=== PATIENT | female | born 1990 | race Caucasian/White ===

== ENCOUNTER 2020-09-26 02:17 | Emergency (ER) | payer BC ==
[2020-09-26] MEDS ORDERED: Ondansetron 4 MG/2 ML SDV IVPUSH ONE (02:46)
[2020-09-26] MEDS ORDERED: HYDROmorphone 1 MG/ML Syringe IVPUSH STA (02:46)
--- NOTE | 2020-09-26 02:54 | EDM.PDOC ---
ED HPI GENERAL MEDICAL PROBLEM - General Chief Complaint: Abdominal Pain Stated Complaint: EXTREME ABDOMINAL PAIN Time Seen by Provider: 09/26/20 02:32 Source of Information: Reports: Patient History Limitations: Reports: No Limitations - History of Present Illness INITIAL COMMENTS - FREE TEXT/NARRATIVE: Mrs. Martinez is a very pleasant 30-year-old woman with no chronic medical p roblems, who now presents the ED after developing sudden onset right lower quadrant abdominal pain around midnight tonight. She states that she has pain in that area if she remains still, but that it becomes sharp if she moves. The pain does not radiate to or from either flank. She denies associated nausea, vomiting, constipation, diarrhea, urinary symptoms, or fever, however, the patient then vomited during my evaluation. No prior similar symptoms. No history of ovarian cysts. The patient states that she took Tylenol and used a heating pad around midnight, without improvement of her symptoms. Here in the ED, her initial BP was found to be modestly elevated at 145/99, otherwise, she is hemodynamically stable, afebrile, saturating 99% on room air. The patient started her menstrual period yesterday, 09/25/2020. She last ate around 17:30 last night. Prior to midnight, the patient denies having a recent fever, chills, sore throat, ear pain, nasal or sinus congestion, cough, dyspnea, chest pain, palpitations, nausea, vomiting, constipation, diarrhea, abdominal pain, urinary symptoms, recent weight gain or weight loss, recent bloody bowel movements or black bowel movements, recent joint aches, headaches, or rashes. The patient does not have a PCP. Her Jig Borer is Dr. Carmen Knight. She received an influenza vaccine this season. Right Lower Abdomen Pain Score (Numeric/FACES): 8 - Related Data Allergies Allergy/AdvReac Type Severity Reaction Status Date / Time Sulfa (Sulfonamide Allergy Severe Cannot Verified 09/26/20 02:32 Antibiotics) Remember Home Meds: Home Meds Control. 1 tab PO DAILY 09/26/20 [History] Ondansetron [Zofran ODT] 1 tab PO Q8H PRN #10 tab.dis 09/26/20 [Rx] Past Medical History : 2 Para: 2 - Past Surgical History HEENT Surgical History: Reports: Oral Surgery (dental extractions) Dermatological Surgical History: Reports: Other (See Below) (Benign cyst excision right axilla) Social & Family History - Tobacco Use Tobacco Use Status *Q: Never Tobacco User Second Hand Smoke Exposure: No - Caffeine Use Caffeine Use: Reports: None - Alcohol Use Alcohol Use History: No - Recreational Drug Use Recreational Drug Use: No - Living Situation & Occupation Living situation: Reports: , with Spouse, with Family (2 kids) Occupation: Employed (teacher) ED ROS GENERAL - Review of Systems Review Of Systems: Comprehensive ROS is negative, except as noted in HPI. ED EXAM, GI/ABD - Physical Exam Exam: See Below Exam Limited By: No Limitations General Appearance: Alert, WD/WN, Mild Distress (vomited during evaluation) Eyes: Bilateral: Normal Appearance, EOMI Ears: Normal External Exam, Hearing Grossly Normal Nose: Normal Inspection Throat/Mouth: Normal Inspection, Normal Lips, Normal Voice, No Airway Compromise Head: Atraumatic, Normocephalic Neck: Normal Inspection, Full Range of Motion Respiratory/Chest: No Respiratory Distress, Lungs Clear, Normal Breath Sounds, No Accessory Muscle Use Cardiovascular: Normal Peripheral Pulses, Regular Rate, Rhythm, No Edema, No Gallop, No JVD, No Murmur, No Rub GI/Abdominal Exam: Normal Bowel Sounds, Soft, No Organomegaly, No Distention, No Abnormal Bruit, No Mass, Tender (Mild, generalized, but likely worst in the suprapubic region), Other (Obturator sign, psoas sign, and heel drop sign all absent) Back Exam: Normal Inspection, Full Range of Motion. No: CVA Tenderness (L), CVA Tenderness (R) Extremities: Normal Inspection, Normal Range of Motion, No Pedal Edema, Normal Capillary Refill Neurological: Alert, Oriented, Normal Cognition, No Motor/Sensory Deficits Psychiatric: Normal Affect Skin Exam: Warm, Dry, Intact, Normal Color, No Rash Course - Vital Signs Last Recorded V/S: Last Vital Signs Temp 36.4 C 09/26/20 02:30 Pulse 80 09/26/20 02:30 Resp 16 09/26/20 02:30 BP 145/99 H 09/26/20 02:30 Pulse Ox 99 09/26/20 02:30 - Orders/Labs/Meds Orders: Active Orders 24 hr Category Date Time Status Abdomen Pelvis w Cont [CT] Stat Exams 09/26/20 06:05 Taken Sodium Chloride 0.9% [Normal Saline] 1,000 ml Med 09/26/20 03:00 Active IV ASDIRECTED Sodium Chloride 0.9% [Normal Saline] 100 ml Med 09/26/20 07:15 Active IV ASDIRECTED Sodium Chloride 0.9% [Saline Flush] Med 09/26/20 06:15 Active 10 ml FLUSH BOLUS Medication Orders Sodium Chloride (Normal Saline) 1,000 mls @ 150 mls/hr IV ASDIRECTED STEPHANY Last Admin: 09/26/20 02:55 Dose: 150 mls/hr Documented by: YUMIKO Sodium Chloride (Normal Saline) 100 mls @ 60 mls/hr IV ASDIRECTED STEPHANY Last Admin: 09/26/20 07:13 Dose: 60 mls/hr Documented by: MASSIEL Sodium Chloride (Saline Flush) 10 ml FLUSH BOLUS [facility] Last Admin: 09/26/20 06:08 Dose: 10 ml Documented by: ONEIGIN Labs: Laboratory Tests 09/26/20 09/26/20 09/26/20 Range/Units 02:45 02:45 03:58 WBC 8.68 (3.98-10.04) K/mm3 RBC 4.30 (3.98-5.22) M/mm3 Hgb 13.6 (11.2-15.7) gm/dl Hct 39.6 (34.1-44.9) % MCV 92.1 (79.4-94.8) fl MCH 31.6 (25.6-32.2) pg MCHC 34.3 (32.2-35.5) g/dl RDW Std Deviation 40.4 (36.4-46.3) fL Plt Count 313 (182-369) K/mm3 MPV 9.2 L (9.4-12.3) fl Neutrophils % (Manual) 51 (40-60) % Band Neutrophils % 0 (0-10) % Lymphocytes % (Manual) 36 (20-40) % Atypical Lymphs % 4 % Monocytes % (Manual) 8 (2-10) % Eosinophils % (Manual) 1 (0.7-5.8) % Basophils % (Manual) 0 L (0.1-1.2) Platelet Estimate Adequate RBC Morph Comment Normal Sodium 139 (136-145) mEq/L Potassium 3.5 (3.5-5.1) mEq/L Chloride 104 (98-107) mEq/L Carbon Dioxide 24 (21-32) mEq/L Anion Gap 14.5 (5-15) BUN 11 (7-18) mg/dL Creatinine 0.9 (0.55-1.02) mg/dL Est Cr Clr Drug Dosing 90.53 mL/min Estimated GFR (MDRD) > 60 (>60) mL/min BUN/Creatinine Ratio 12.2 L (14-18) Glucose 112 H (74-106) mg/dL Calcium 8.6 (8.5-10.1) mg/dL Magnesium 1.9 (1.8-2.4) mg/dl Total Bilirubin 0.4 (0.2-1.0) mg/dL AST 14 L (15-37) U/L ALT 19 (14-59) U/L Alkaline Phosphatase 29 L (46-116) U/L Total Protein 7.0 (6.4-8.2) g/dl Albumin 3.8 (3.4-5.0) g/dl Globulin 3.2 gm/dL Albumin/Globulin Ratio 1.2 (1-2) Urine Color (Yellow) Urine Appearance (Clear) Urine pH (5.0-8.0) Ur Specific [place] (1.005-1.030) Urine Protein (Negative) Urine Glucose (UA) (Negative) Urine Ketones (Negative) Urine Occult Blood (Negative) Urine Nitrite (Negative) Urine Bilirubin (Negative) Urine Urobilinogen (0.2-1.0) Ur Leukocyte Esterase (Negative) Urine RBC (0-5) /hpf Urine WBC (0-5) /hpf Ur Squamous Epith Cells (0-5) /hpf Urine Bacteria (FEW) /hpf Urine Mucus (FEW) /hpf Urine HCG, Qual (NEGATIVE) SARS-CoV-2 RNA (HIMANSHU) Negative (NEGATIVE) 09/26/20 09/26/20 Range/Units 04:10 04:10 WBC (3.98-10.04) K/mm3 RBC (3.98-5.22) M/mm3 Hgb (11.2-15.7) gm/dl Hct (34.1-44.9) % MCV (79.4-94.8) fl MCH (25.6-32.2) pg MCHC (32.2-35.5) g/dl RDW Std Deviation (36.4-46.3) fL Plt Count (182-369) K/mm3 MPV (9.4-12.3) fl Neutrophils % (Manual) (40-60) % Band Neutrophils % (0-10) % Lymphocytes % (Manual) (20-40) % Atypical Lymphs % % Monocytes % (Manual) (2-10) % Eosinophils % (Manual) (0.7-5.8) % Basophils % (Manual) (0.1-1.2) Platelet Estimate RBC Morph Comment Sodium (136-145) mEq/L Potassium (3.5-5.1) mEq/L Chloride (98-107) mEq/L Carbon Dioxide (21-32) mEq/L Anion Gap (5-15) BUN (7-18) mg/dL Creatinine (0.55-1.02) mg/dL Est Cr Clr Drug Dosing mL/min Estimated GFR (MDRD) (>60) mL/min BUN/Creatinine Ratio (14-18) Glucose (74-106) mg/dL Calcium (8.5-10.1) mg/dL Magnesium (1.8-2.4) mg/dl Total Bilirubin (0.2-1.0) mg/dL AST (15-37) U/L ALT (14-59) U/L Alkaline Phosphatase (46-116) U/L Total Protein (6.4-8.2) g/dl Albumin (3.4-5.0) g/dl Globulin gm/dL Albumin/Globulin Ratio (1-2) Urine Color Yellow (Yellow) Urine Appearance Clear (Clear) Urine pH 6.5 (5.0-8.0) Ur Specific [place] > or = 1.030 (1.005-1.030) Urine Protein Negative (Negative) Urine Glucose (UA) Negative (Negative) Urine Ketones Negative (Negative) Urine Occult Blood Negative (Negative) Urine Nitrite Negative (Negative) Urine Bilirubin Negative (Negative) Urine Urobilinogen 1.0 (0.2-1.0) Ur Leukocyte Esterase Negative (Negative) Urine RBC 0-5 (0-5) /hpf Urine WBC 0-5 (0-5) /hpf Ur Squamous Epith Cells 5-10 H (0-5) /hpf Urine Bacteria Few (FEW) /hpf Urine Mucus Moderate H (FEW) /hpf Urine HCG, Qual Negative (NEGATIVE) SARS-CoV-2 RNA (HIMANSHU) (NEGATIVE) Meds: Medications Generic Name Dose Route Start Last Admin Trade Name Freilda PRN Reason Stop Dose Admin Sodium Chloride 1,000 mls @ 150 mls/hr 09/26/20 03:00 09/26/20 02:55 Normal Saline IV 150 mls/hr ASDIRECTED STEPHANY Administration Sodium Chloride 100 mls @ 60 mls/hr 09/26/20 07:15 09/26/20 07:13 Normal Saline IV 60 mls/hr ASDIRECTED STEPHANY Administration Sodium Chloride 10 ml 09/26/20 06:15 09/26/20 06:08 Saline Flush FLUSH 10 ml BOLUS STEPHANY Administration Discontinued Medications Generic Name Dose Route Start Last Admin Trade Name Kel PRN Reason Stop Dose Admin Diatrizoate Meglum/Diatrizoate Sod 90 ml 09/26/20 07:04 09/26/20 07:12 Gastrografin 37% PO 09/26/20 07:05 90 ml ONETIME ONE Administration Hydromorphone HCl 0.5 mg 09/26/20 02:46 09/26/20 02:55 Dilaudid IVPUSH 09/26/20 02:47 0.5 mg ONETIME STA Administration Iopamidol 100 ml 09/26/20 06:02 09/26/20 06:06 Isovue-300 (61%) IVPUSH 09/26/20 06:03 100 ml ONETIME ONE Administration Ondansetron HCl 4 mg 09/26/20 02:46 09/26/20 02:56 Zofran IVPUSH 09/26/20 02:47 4 mg ONETIME ONE Administration - Re-Assessments/Exams Free Text/Narrative Re-Assessment/Exam: 09/26/20 02:48 As above, the patient developed sudden onset right lower quadrant abdominal pain around midnight tonight with generalized pain if she remains still, sharp if she moves. No radiation to her from either of her flanks. She denied having associated nausea or vomiting, but then vomited during my evaluation. No associated fever, constipation, diarrhea, or urinary symptoms. She took Tylenol at home without relief of symptoms. On examination, the patient has generalized abdominal tenderness, with possible increased tenderness to her suprapubic region, but it is nonfocal. The rapid onset of her symptoms suggest an ovarian cyst, and speak against acute appendicitis, but these, along with an unusual presentation of a ureterolith, are all possible. I have therefore ordered a work-up that includes blood work, a urinalysis by clean-catch, a urine test, and a CT of the abdomen and pelvis with oral and IV contrast to evaluate. In the meantime, the patient will be given IV Dilaudid, IV Zofran, and IV fluid. 09/26/20 04:51 The patient's CBC is unremarkable. Her CMP is remarkable for a blood glucose slightly elevated at 112, with the remainder of her CMP being unremarkable. Her magnesium level is within normal limits at 1.9. Her urinalysis is unremarkable. Her urine test is negative. Her swab for the SARS-CoV-2 virus is negative. 09/26/20 06:06 CT of the abdomen and pelvis with oral and IV contrast is read by vRmilagro as: 1. No acute abnormality identified. Appendix not identified, without secondary signs of appendicitis. If appendicitis is of high or increasing clinical concern, may consider follow-up. 2. 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 3. Small fat-containing umbilical hernia. 09/26/20 06:18 Test results discussed with the patient. He looks much better, and states that she feels much better, as well. As above, today's work-up is completely unremarkable, and does not explain the cause of her pain, however, her history and physical examination are most consistent with a hemorrhagic ovarian cyst, which CT scans often do not find. Most importantly, however, the CT did not find any other possible etiology, and did not find any blood in the pelvis concerning for a ruptured ovarian cyst. I will prescribe Zofran ODT, and she can take [id number] ibuprofen as needed for discomfort. Departure - Departure Time of Disposition: 06:19 Disposition: Home, Self-Care 01 Condition: Good Clinical Impression: Ovarian cyst - Discharge Information *PRESCRIPTION DRUG MONITORING PROGRAM REVIEWED*: Not Applicable *COPY OF PRESCRIPTION DRUG MONITORING REPORT IN PATIENT KYLE: Not Applicable Prescriptions: Ondansetron [Zofran ODT] 1 tab PO Q8H PRN #10 tab.dis PRN Reason: Nausea/Vomiting Instructions: Ovarian Cyst, [id number] Referrals: Carmen Knight MD [Physician] - Forms: ED Department Discharge Additional Instructions: You were seen in the emergency room after developing sudden onset lower right abdominal pain, with nausea and vomiting in the ER. Work-up in the ER included blood work, a urinalysis, a urine test, a CT of your abdomen and pelvis with oral and IV contrast, and a swab for the SARS-CoV-2 virus. Your entire work-up was unremarkable. You do not have a urinary tract infection. You are not . You do not have appendicitis. Your swab for the SARS-CoV-2 virus returned negative. As discussed, based on your history, physical exam, and ER tests, your symptoms are most likely caused by an ovarian cyst. We recommend that you take [id number] ibuprofen, 3 tablets (600 mg) up to every 8 hours, with food, as needed for discomfort. A prescription for the antinausea medicine Zofran has been sent to the [place] pharmacy, located in the [employer] [facility] store. You may dissolve 1 tablet of Zofran on your tongue up to every 8 hours, as needed for nausea/vomiting. Stay adequately hydrated. If your symptoms persist, please follow-up with your Jig Borer, Dr. Carmen Knight. If any other problems, please do not hesitate to return to the ER. Sepsis Event Note (ED) - Evaluation Sepsis Screening Result: No Definite Risk - Focused Exam Vital Signs: Vital Signs Temp Pulse Resp BP Pulse Ox 09/26/20 02:30 36.4 C 80 16 145/99 H 99 - My Orders Last 24 Hours: My Active Orders 09/26/20 03:00 Sodium Chloride 0.9% [Normal Saline] 1,000 ml IV ASDIRECTED 09/26/20 06:05 Abdomen Pelvis w Cont [CT] Stat 09/26/20 06:15 Sodium Chloride 0.9% [Saline Flush] 10 ml FLUSH BOLUS 09/26/20 07:15 Sodium Chloride 0.9% [Normal Saline] 100 ml IV ASDIRECTED - Assessment/Plan Last 24 Hours: My Active Orders 09/26/20 03:00 Sodium Chloride 0.9% [Normal Saline] 1,000 ml IV ASDIRECTED 09/26/20 06:05 Abdomen Pelvis w Cont [CT] Stat 09/26/20 06:15 Sodium Chloride 0.9% [Saline Flush] 10 ml FLUSH BOLUS 09/26/20 07:15 Sodium Chloride 0.9% [Normal Saline] 100 ml IV ASDIRECTED
[2020-09-26] MEDS ORDERED: Sodium Chloride 0.9% 1,000 ML IV SCH (03:00)
[2020-09-26] MEDS ORDERED: Iopamidol 612 MG/ML 100 ML Bottle IVPUSH ONE (06:02)
[2020-09-26] MEDS ORDERED: Sodium Chloride 0.9% 10 ML Syringe FLUSH SCH (06:15)
[2020-09-26] MEDS ORDERED: Diatrizoate Meglumine/Diatrizoate Sodium 37% 120 ML Bottle PO ONE (07:04)
[2020-09-26] MEDS ORDERED: Sodium Chloride 0.9% 100 ML IV SCH (07:15)
--- NOTE | 2020-09-26 10:24 | CT ---
"PROCEDURE INFORMATION: Exam: CT Abdomen And Pelvis With Contrast Exam date and time: 09/26/2020 6:05 AM Age: 30 years old Clinical indication: Abdominal pain; Acute; Patient HX: RLQ pain onset 24 hours ago TECHNIQUE: Imaging protocol: Computed tomography of the abdomen and pelvis with intravenous contrast. Radiation optimization: All CT scans at this facility use at least one of these dose optimization techniques: automated exposure control; mA and/or kV adjustment per patient size (includes targeted exams where dose is matched to clinical indication); or iterative reconstruction. Contrast material: ISOVUE 300; Contrast volume: 100 ml; Contrast route: INTRAVENOUS (IV); Other contrast: Oral, gastrogafin, rn dosed; COMPARISON: No relevant prior studies available. FINDINGS: Lungs: The visualized lung bases demonstrate minor dependent atelectasis. Liver: Normal. No mass. Gallbladder and bile ducts: No gallstones are evident, but ultrasound would be more sensitive. No gross biliary ductal dilatation. Pancreas: Normal. No ductal dilation. Spleen: Normal. No splenomegaly. Adrenal glands: Normal. No mass. Kidneys and ureters: Normal. No hydronephrosis. Stomach and bowel: The small bowel is not obstructed. The ileocecal valve and cecum are located in the left pelvis. Bowel rotation is otherwise normal. The large bowel is otherwise grossly unremarkable in appearance. Appendix: The appendix is not identified, but there are no inflammatory changes in its expected region. The appendix is not identified, but there are no inflammatory changes in its expected region. Intraperitoneal space: No free air or significant free fluid. CL[facility] | Final Radiology Report CONFIDENTIALITY STATEMENT This report is intended only for use by the referring physician, and only in accordance with law. If you received this in error, call [phone]. Page 2 of 2 Vasculature: The abdominal aorta is nonaneurysmal. The left renal vein is noted to be circumaortic. Lymph nodes: Unremarkable. No enlarged lymph nodes. Urinary bladder: Unremarkable as visualized. Reproductive: A tampon is noted in the vagina. No gross adnexal abnormality is apparent, but ultrasound would be more appropriate in this regard. Bones/joints: Mild degenerative changes involve the hips and spine. Soft tissues: A small fat containing umbilical hernia is present. IMPRESSION: 1. No acute abnormality identified. Appendix not identified, without secondary signs of appendicitis. If appendicitis is of high or increasing clinical concern, may consider follow-up. 2. 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 3. Small fat containing umbilical hernia. Thank you for allowing us to participate in the care of your patient. Dictated and Authenticated by: Jaun Collado MD 09/26/2020 6:57 AM Central Time ([place] & [place]) RENA"
== END 2020-09-26 06:35 | disposition home or self-care (01) ==
LOC: JD.ED 02:17
DX: N83.209 Unspecified ovarian cyst, unspecified side (principal); Z88.2 Allergy status to sulfonamides; Z20.828 Contact with and (suspected) exposure to other viral communicable diseases
CPT/HCPCS: 36415; 74177; 80053; 81001; 81025; 83735; 85007; 85027; 87635; 96374; 96375; 99284; J1170; J2405; J7030; Q9963; Q9967; U0002